=== PATIENT | male | born 1990 | race Caucasian/White ===

== ENCOUNTER → 2018-04-24 09:11 | Outpatient (CLI) | payer OTHER, SELFPAY ==
[2018-04-24 09:03] VITALS: BMI 26.4
--- NOTE | 2018-04-24 09:14 | RAD_ITS ---
STUDY: X-RAY - RIGHT RADIUS AND ULNA REASON FOR EXAM: Male, 27 years old. Elbow pain, no acute trauma. TECHNIQUE: 2 view(s) of the forearm. COMPARISON: None. FINDINGS: There is no demonstrated soft tissue swelling. The elbow is normal. Mild irregularity involving the articular surface of the radius possibly related to old trauma. An old ulnar styloid fracture is present. RAD/Forearm 2 Views IMPRESSION: Normal elbow. Probable old posttraumatic changes involving the distal radius and ulna. Electronically Signed: Ernie Downs MD at 7:34 EST , Service support ,
== END ==
PROVIDERS: Family Provider Student in an Organized Health Care Education/Training Program; PCP Student in an Organized Health Care Education/Training Program; Referring Provider Physician Assistant; Visit Provider Physician Assistant
DX: M79.603 Pain in arm, unspecified (principal)
CPT/HCPCS: 73090

== ENCOUNTER 2019-05-21 06:48 | Emergency (ER) | payer OTHER, SELFPAY ==
[2018-04-24 09:03] VITALS: BMI 26.4
[2019-05-21 06:50] VITALS: BP 150/89; PULSE 82; RESP 16; TEMP 36.8; O2SAT 97; BMI 32.3
--- NOTE | 2019-05-21 07:00 | ED.VIS.GEN ---
History of Present Illness Chief Complaint: Fever Informant: Patient Onset: Yesterday Context: Gradual Onset Timing: Intermittent Current Severity: Moderate Maximum Severity: Moderate Narrative: The patient is an otherwise healthy male who presents to the emergency department with fever and sore throat. He states symptoms began yesterday. He is an fevers of 102. He did take Tylenol the fever broke. He describes pain is posterior throat and pain in his glands. He has no history of immunosuppression. He is otherwise been in his normal state of health. Prior similar symptoms: No Recent Illness/Hospitalization: No Past Medical History - Allergies and Home Meds Allergies/Adverse Reactions: Allergies No Known Allergies Allergy (Verified 05/21/19 06:49) Primary Care Physician: Yomi Gannon [Primary Care Provider] - Prior records reviewed: Yes Past Medical History: None Surgical History: no surgical history Smoking Status: Never smoker Review of Systems General: Reports: Fever Eyes: Denies: Visual changes - bilaterally, Diplopia ENT: Reports: Sore throat Cardiovascular: Denies: Chest pain, Palpitations Respiratory: Denies: Dyspnea, Cough, Dyspnea on exertion Gastrointestinal: Denies: Abdominal pain, Nausea, Vomiting, Diarrhea, Melena, Hematochezia Genitourinary: Denies: Dysuria, Hematuria, Frequency Musculoskeletal: Denies: Back pain, Extremity Pain Skin: Denies: Rash, Wounds Neurological: Denies: Headache, Weakness, Numbness Physical Exam Vital Signs/Narrative: Vital Signs Temp Pulse Resp BP Pulse Ox 05/21/19 06:50 98.2 F 82 16 150/89 H 97 Inital Vital Signs reviewed: Yes General: Well nourished, Well developed, No Acute Distress Head: Normocephalic, Atraumatic Eyes: Perrl, EOMI ENT: Moist mucous membranes, - - Posterior oropharynx shows exudate bilaterally. Uvula midline. No evidence of retropharyngeal or peritonsillar abscess. Kernig's and Brezinski's are negative. Neck: Supple, Nontender, No JVD Cardiovascular: Regular rate, Regular rhythm, No murmurs Respiratory: No distress, CTA bilaterally, Chest nontender Abdomen: Soft, Nontender, Nondistended, Normal bowel sounds Back: Nontender, Normal Inspection Extremities: Nontender, No edema Skin: Normal color, No rash Neurological: Alert, Oriented x3, Cranial nerves II-XII grossly intact, Normal Strength, Normal Sensation Psychological: Normal affect, Normal Mood Diagnostic/Tx/Re-eval - Medical Decision Making The patient has fever, adenopathy, and tonsillar exudate. He is not meningitic or encephalopathic. Based on [facility] criteria, he will be treated for strep pharyngitis. He will be started on Augmentin given Decadron here. He will continue to take antipyretics. The patient will be discharged home. Impression 1. Strep pharyngitis ED Disposition - Plan for ED Patient: Instructions: PHARYNGITIS, Strep (Confirmed) Prescriptions: Amox/Clavulanate Tablet [Augmentin Tablet] 875 mg PO Q12H #20 tab Prescription Printed Referrals: Yomi Gannon [Primary Care Provider] -
[2019-05-21] MEDS: Amox/Clavulanate 875 MG Tablet PO (07:15)
[2019-05-21] MEDS: dexAMETHasone 10 MG/ML Vial PO.IVFORM (07:15)
== END 2019-05-21 07:19 | disposition home or self-care (01) ==
LOC: ED 07:10
PROVIDERS: Emergency Provider Emergency Medicine
DX: J02.0 Streptococcal pharyngitis (principal)
CPT/HCPCS: 99283

== ENCOUNTER 2020-10-07 04:38 | Emergency (ER) | payer BC, SELFPAY ==
[2020-10-07 04:38] VITALS: BP 158/104; PULSE 62; RESP 18; TEMP 37.1; O2SAT 98; BMI 27.1
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
[2020-10-07] MEDS: Ketorolac 30 MG/ML Syringe IM (04:59)
[2020-10-07] MEDS: Morphine 4 MG/ML Syringe IM (05:01)
[2020-10-07] MEDS: Orphenadrine 60 MG/2 ML Ampul IM (05:03)
== END 2020-10-07 05:30 | disposition home or self-care (01) ==
PROVIDERS: Emergency Provider Emergency Medicine
DX: S16.1XXA Strain of muscle, fascia and tendon at neck level, initial encounter (principal); J45.909 Unspecified asthma, uncomplicated; Z79.51 Long term (current) use of inhaled steroids; V43.52XA Car driver injured in collision with other type car in traffic accident, initial encounter; Y93.I9 Activity, other involving external motion; Y92.410 Unspecified street and highway as the place of occurrence of the external cause; Y99.8 Other external cause status
CPT/HCPCS: 96372; 99282